=== PATIENT | male | born 1990 | race Caucasian/White ===

== ENCOUNTER 2016-03-11 00:18 | Emergency (ER) | payer MEDICAID ==
[2016-03-11 00:34] VITALS: BP 123/64; PULSE 88; TEMP 98.7; BMI 20.3
[2016-03-11] MEDS ORDERED: TRIMETHOPRIM-SULFAMETHOXAZOLE TAB PO ONE (00:50)
--- NOTE | 2016-03-11 00:53 | EDPRACDOC ---
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 PT IS IV DRUG ABUSER. STATES HE INJECTS [place]. PT STATES HE PUT A WARM COMPRESS ON THE AREA AND IT DRAINED. Location: Reports: Extremity Last Tetanus: Yes Relevent History Of: Reports: IV Drug Use Prior Abscess: Reports: None Pain: Reports: Moderate Quality: Reports: Draining, Painful, Red Associated Signs & Symptoms: Reports: None ED Past Medical History - History Reviewed Yes Nurses notes reviewed and agree except as marked - Patient Medical History Psychological History: Denies: Depression - Social Medical History Smoking Status: Heavy tobacco smoker (5 or more cigarettes/day or daily pipe/ cigar) EDM Review of Systems - Review of Systems ROS Negative Except as Marked: Yes All systems reviewed and were negative except as marked - Physical Exam Constitutional: Alert (PT APPEARS MEDICINALLY IMPAIRED) Oriented to: Time, Person, Place Last recorded Vital Signs: Last Vital Signs Temp 98.7 F 03/11/16 00:32 Pulse 88 03/11/16 00:32 Resp 20 03/11/16 00:32 BP 123/64 03/11/16 00:32 Pulse Ox 98 03/11/16 00:32 Oxygen Pulse Oxygen Saturation 98 O2 Device Room Air Oxygen Flow Rate Fraction of Inspired Oxygen ( FIO2) - HEENT Head: Normal ( normocephalic) Eye Exam: Normal (PERRL, EOMI, Sclera white) Oropharynx: Normal (Pharynx:Moist without exudate,Gums-no swelling) Nose: No Symptoms Reported (septum midline) Neck: Normal (FROM, trachea at midline) - Respiratory/Cardiovascular Respiratory: Normal - CTA (BBS clear to auscultation without adventitious sounds ) Cardiovascular: Normal (RRR without murmur, gallop or rub) - GI Auscultation: Normal (NABS) Palpation: Normal (Soft,No rebound or guarding, non distended) Tenderness: Non tender Chopra's Sign: Negative Rectal Exam: Deferred - Musculoskeletal Back: Normal (Non-Tender) Extremities: Normal (Normal tone, Pulses 2+ No cyanosis or edema, FROM) - Integumentary Skin: Normal, Warm, Dry Lymphatics: Normal (no adenopathy) - Neurologic Memory Impaired: Normal Motor Function: Normal (Normal tone, Pulses 2+ No cyanosis or edema, FROM) Cranial Nerve: Normal (CN II-X11 intact sensation, strength 5/5) Cerebellar: Normal Mood Description: Normal Perception: Normal ED Abscess/Mass Exam - Integumentary Skin: Normal Mass: Size (PLUM), Red, Tender, Firm Lymphatics: Normal - Other Exam Other Exam Findings: DR SUÁREZ ALSO LOOKED AT THE AREA AND STATES IT DOES NOT NEED DRAINING AT THIS TIME - Differential Diagnosis Abscess, Cellulitis Decision Time to Discharge: 00:55 - Departure Disposition: Home Condition: Stable Final Diagnosis: Cellulitis Qualifiers: Site of cellulitis: extremity Site of cellulitis of extremity: upper extremity Laterality: right Qualified Code(s): L03.113 - Cellulitis of right upper limb Instructions: Cellulitis (ED) Education/Counseling Given To: Patient Education/Counseling Given Regarding: Diagnosis, Treatment, Prognosis, Follow Up Referrals: Omid Knowles II, MD [Staff Physician] - One Week Prescriptions: Ibuprofen Tablet [Motrin] 800 mg PO QID #30 tab Sulfamethoxazole/Trimethoprim [Bactrim Ds Tablet] 1 tab PO BID #14 tab Additional Instructions: STOP DOING DRUGS. INCREASE FLUID INTAKE. FOLLOW UP WITH PRIMARY CARE PROVIDER NEXT WEEK. TAKE ALL ANTIBIOTICS PRESCRIBED. RETURN TO THE ED FOR WORSENING SYMPTOMS OR CONCERNS.
== END 2016-03-11 01:15 | disposition home or self-care (01) ==
LOC: ED 00:18
DX: L03.113 Cellulitis of right upper limb (principal); F11.10 Opioid abuse, uncomplicated; F17.200 Nicotine dependence, unspecified, uncomplicated
CPT/HCPCS: 99283; J3490